=== PATIENT | female | born 1985 | race Caucasian/White ===

== ENCOUNTER 2018-10-17 13:18 | Emergency (ER) | payer OTHER, MEDICAID ==
[~2018-10-17] VITALS: Ht 170.2 cm; Wt 78.0 kg
[2018-10-17 14:04] VITALS: BP 130/74
== END 2018-10-17 14:04 | disposition home or self-care (01) ==
LOC: M.ERS 13:18
DX: R20.2 Paresthesia of skin (principal)

== ENCOUNTER 2018-11-02 11:54 | Emergency (ER) | payer OTHER, MEDICAID ==
[~2018-11-02] VITALS: Ht 170.2 cm; Wt 78.5 kg
[2018-11-02] MEDS ORDERED: NABUMETONE 750750 M1 PO (12:54)
[2018-11-02] MEDS ORDERED: ONDANSETRON HCL4 M2 PO (12:54)
[2018-11-02 14:05] VITALS: BP 119/79
== END 2018-11-02 14:06 | disposition home or self-care (01) ==
LOC: M.ERS 11:54
DX: S06.0X0A Concussion without loss of consciousness, initial encounter (principal); F17.200 Nicotine dependence, unspecified, uncomplicated; V89.2XXA Person injured in unspecified motor-vehicle accident, traffic, initial encounter; Y92.89 Other specified places as the place of occurrence of the external cause; Y93.89 Activity, other specified; Y99.8 Other external cause status